=== PATIENT | female | born 1990 | race Caucasian/White ===

== ENCOUNTER 2022-03-11 12:23 | Emergency (ER) | payer BC ==
[2022-03-11 14:00] LABS: Absolute Lymphocytes (CBC) 1.9 K/uL (0.7-4.9); Hematocrit 37.3 % (36.0-45.0); Lymphocytes % 16.4 % (15.3-44.8); MPV 9.8 fL (7.6-11.3); RBC Red Blood Cell Count 4.28 M/uL (3.86-4.86)
[2022-03-11 14:16] LABS: Albumin 2.7 g/dL (3.4-5.0); Bilirubin Total 0.3 mg/dL (0.2-1.0); Potassium 3.6 mmol/L (3.5-5.1); Protein, Total 6.8 g/dL (6.4-8.2)
--- NOTE | 2022-03-11 16:09 | RAD REPORT ---
EXAM DESCRIPTION: MRI - Brain Wo Cont - 03/11/2022 3:55 pm CLINICAL HISTORY: Vision changes - COMPARISON: No comparisons TECHNIQUE: Sagittal T1-weighted images were obtained along with PD/heavily T2-weighted and T2-FLAIR images. Axial DWI and ADC mapping sequences were also obtained along with coronal heavily T2-weighted images were obtained. FINDINGS: No intracranial hemorrhage, mass or acute infarction. There is no edema or shift of midlin e structures. No extra-axial fluid collections. Signal voids are seen as a normal finding in the lexi r intracranial vessels. No significant white matter disease. Mastoid air cells and paranasal sinuses are clear. IMPRESSION: Negative non-contrast MRI of the Brain.
[2022-03-11 16:21] LABS: Urine Blood Negative (Negative); Urine Glucose Negative (Negative); Urine Protein Negative (Negative); Urine Specific Gravity 1.025 (1.005-1.030); Urine pH 5.5 (5.0-7.0)
--- NOTE | 2022-03-11 16:51 | ER ---
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 States since kb3 Monday she has had intermittent blurry vision and partial vision loss episodes that last approximately 45 minutes. States she had similar symptoms in her teens that had resolved. Reports migraine headache often follows these episodes. Coronavirus screen: Vaccine status: Patient reports being unvaccinated. Client denies travel out of the [place] in the last 14 days. Ebola Screen: Patient negative for fever greater than or equal to 101.5 degrees Fahrenheit, and additional compatible Ebola Virus Disease symptoms Patient denies exposure to infectious person. Patient denies travel to an Ebola-affected area in the 21 days before illness onset. No symptoms or risks identified at this time. Initial Sepsis Screen: Does the patient meet any 2 criteria? No. Patient's initial sepsis screen is negative. Does the patient have a suspected source of infection? No. Patient's initial sepsis screen is negative. Risk Assessment: Do you want to hurt yourself or someone else? Patient reports no desire to harm self or others. Onset of symptoms was March 11, 2022 at 11:00. 12:41 Method Of Arrival: Ambulatory kb3 12:41 Acuity: IVAN 3 kb3 Triage Assessment: 12:46 General: Appears in no apparent distress. Behavior is calm, cooperative. Pain: kb3 Complains of pain in head Pain does not radiate. Pain currently is 4 out of 10 on a pain scale. Quality of pain is described as aching, dull, Pain began 2 hours ago. 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 Last tetanus immunization: up to date. - Social history:: Smoking status: Patient denies any tobacco usage or history of. Screenin:05 Abuse screen: Denies threats or abuse. Denies injuries from another. Nutritional db screening: No deficits noted. Tuberculosis screening: No symptoms or risk factors identified. Fall Risk None identified. No fall in past 12 months (0 pts). No secondary diagnosis (0 pts). No IV (0 pts). Ambulatory Aid- None/Bed Rest/Nurse Assist (0 pts). Gait- Normal/Bed Rest/Wheelchair (0 pts) Mental Status- Oriented to own ability (0 pts). Total Laureano Fall Scale indicates No Risk (0-24 pts). Assessment: 13:23 Reassessment: Patient appears in no apparent distress at this time. Patient and/or db family updated on plan of care and expected duration. Pain level reassessed. Patient is alert, oriented x 3, equal unlabored respirations, skin warm/dry/pink. General: Appears in no apparent distress. comfortable, Behavior is cooperative, anxious, quiet. Pain: Complains of pain in face. Neuro: No deficits noted. Cardiovascular: No deficits noted. Respiratory: No deficits noted. GI: No deficits noted. : No deficits noted. EENT: No deficits noted. Derm: No deficits noted. Musculoskeletal: No deficits noted. 13:26 Neuro: Reports reports vision changes since Monday that come and go. States has db flashes of light right now.. 14:30 Reassessment: Patient appears in no apparent distress at this time. No changes from db previously documented assessment. Patient and/or family updated on plan of care and expected duration. Pain level reassessed. Patient is alert, oriented x 3, equal unlabored respirations, skin warm/dry/pink. 15:30 Reassessment: Patient appears in no apparent distress at this time. No changes from db previously documented assessment. Patient and/or family updated on plan of care and expected duration. Pain level reassessed. Patient is alert, oriented x 3, equal unlabored respirations, skin warm/dry/pink. Vital Signs: 12:41 BP 136 / 87; Pulse 100; Resp 20; Temp 98.6; Pulse Ox 100% ; Weight 72.57 kg; Height 5 kb3 ft. 4 in. (162.56 cm); Pain 4/10; 13:05 BP 121 / 76; Pulse 94; Resp 18; Pulse Ox 99% ; Pain 4/10; db 15:00 BP 116 / 70; Pulse 83; Resp 16; Pulse Ox 100% ; db 17:00 BP 111 / 67; Pulse 83; Resp 16; Temp 98.7; Pulse Ox 99% ; Pain 0/10; db 12:41 Body Mass Index 27.46 (72.57 kg, 162.56 cm) kb3 Vitals: 13:05 Cardiac Rhythm Assessment Regular Sinus rhythm. db ED Course: 12:26 Patient arrived in ED. mr 12:45 Triage completed. kb3 12:46 Arm band placed on right wrist. kb3 12:53 Godwin Steward MD is Attending Physician. kdr 13:23 Janel Arita, RN is Primary Nurse. db 13:40 Inserted saline lock: 20 gauge in left antecubital area, using aseptic technique. Blood db collected. 17:12 No provider procedures requiring assistance completed. IV discontinued, intact, db bleeding controlled, No redness/swelling at site. Pressure dressing applied. 17:13 Patient has correct armband on for positive identification. Fall risk band placed. Bed db in low position. Side rails up X 1. Administered Medications: No medications were administered Medication: 13:05 VIS not applicable for this client. db Outcome: 16:50 Discharge ordered by . kdr 17:07 Patient left the ED. db 17:12 Discharged to home ambulatory, with significant other. db 17:12 Condition: stable 17:12 Discharge instructions given to patient, significant other, Instructed on discharge instructions, follow up and referral plans. Signatures: Godwin Steward MD MD [facility] Irene mr MartinezAbida, RN RN kb3 Janel Arita, RN RN db Corrections: (The following items were deleted from the chart) 13:26 13:05 BP 121 / 76; Pulse 94bpm; Resp 18bpm; Pulse Ox 99%; db db
--- NOTE | 2022-03-11 16:51 | EDPHYS ---
[facility] Name: Pauline Clancy Age: 31 yrs Sex: Female : 1990 Arrival Date: 03/11/2022 Time: 12:26 Bed 3 Private MD: ED Physician Godwin Steward HPI: 03/11 17:49 This 31 yrs old Female presents to ER via Ambulatory with complaints of , kdr Vision Problem. 17:49 Patient is approximately 31 weeks at . Patient states that she has a history of kdr macular degeneration but has not had any progression of her disease process in the last 10 years. For the past couple of weeks, she has had intermittent scotomas and visual field deficits. Currently on presentation she has no visual field deficits but she persists with intermittent scotomas. She has no other focal or global complaints.. Onset: The symptoms/episode began/occurred gradually, 2 week(s) ago. Severity of symptoms: At their worst the symptoms were mild just prior to arrival, in the emergency department the symptoms have improved moderately. The patient has not experienced similar symptoms in the past, . The patient has not recently seen a physician. 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 Last tetanus immunization: up to date. - Social history:: Smoking status: Patient denies any tobacco usage or history of. ROS: 17:49 Constitutional: Negative for fever, chills, and weight loss, Eyes: Negative for injury, kdr pain, redness, and discharge, ENT: Negative for injury, pain, and discharge, Neck: Negative for injury, pain, and swelling, Cardiovascular: Negative for chest pain, palpitations, and edema, Respiratory: Negative for shortness of breath, cough, wheezing, and pleuritic chest pain, Abdomen/GI: Negative for abdominal pain, nausea, vomiting, diarrhea, and constipation, Back: Negative for injury and pain, : Negative for injury, bleeding, discharge, and swelling, MS/Extremity: Negative for injury and deformity, Skin: Negative for injury, rash, and discoloration, Neuro: Negative for headache, weakness, numbness, tingling, and seizure activity. She has had visual field changes Psych: Negative for depression, anxiety, suicide ideation, homicidal ideation, and hallucinations, Allergy/Immunology: Negative for hives, rash, and allergies, Endocrine: Negative for neck swelling, polydipsia, polyuria, polyphagia, and marked weight changes, Hematologic/Lymphatic: Negative for swollen nodes, abnormal bleeding, and unusual bruising. Exam: 17:49 Constitutional: This is a well developed, well nourished patient who is awake, alert, kdr and in no acute distress. Head/Face: Normocephalic, atraumatic. Eyes: Pupils equal round and reactive to light, extra-ocular motions intact. Lids and lashes normal. Conjunctiva and sclera are non-icteric and not injected. Cornea within normal limits. Periorbital areas with no swelling, redness, or edema. Neck: Trachea midline, no thyromegaly or masses palpated, and no cervical lymphadenopathy. Supple, full range of motion without nuchal rigidity, or vertebral point tenderness. No Meningismus. Chest/axilla: Normal chest wall appearance and motion. Nontender with no deformity. No lesions are appreciated. Cardiovascular: Regular rate and rhythm with a normal S1 and S2. No gallops, murmurs, or rubs. Normal PMI, no JVD. No pulse deficits. Respiratory: Lungs have equal breath sounds bilaterally, clear to auscultation and percussion. No rales, rhonchi or wheezes noted. No increased work of breathing, no retractions or nasal flaring. Abdomen/GI: Soft, non-tender, with normal bowel sounds. No distension or tympany. No guarding or rebound. No evidence of tenderness throughout. Back: No spinal tenderness. No costovertebral tenderness. Full range of motion. Skin: Warm, dry with normal turgor. Normal color with no rashes, no lesions, and no evidence of cellulitis. MS/ Extremity: Pulses equal, no cyanosis. Neurovascular intact. Full, normal range of motion. Neuro: Awake and alert, GCS 15, oriented to person, place, time, and situation. Cranial nerves II-XII grossly intact. Motor strength 5/5 in all extremities. Sensory grossly intact. Cerebellar exam normal. Normal gait. Psych: Awake, alert, with orientation to person, place and time. Behavior, mood, and affect are within normal limits. Vital Signs: 12:41 BP 136 / 87; Pulse 100; Resp 20; Temp 98.6; Pulse Ox 100% ; Weight 72.57 kg; Height 5 kb3 ft. 4 in. (162.56 cm); Pain 4/10; 13:05 BP 121 / 76; Pulse 94; Resp 18; Pulse Ox 99% ; Pain 4/10; db 15:00 BP 116 / 70; Pulse 83; Resp 16; Pulse Ox 100% ; db 17:00 BP 111 / 67; Pulse 83; Resp 16; Temp 98.7; Pulse Ox 99% ; Pain 0/10; db 12:41 Body Mass Index 27.46 (72.57 kg, 162.56 cm) kb3 MDM: 16:50 Patient medically screened. kdr 17:49 Data reviewed: vital signs, nurses notes, lab test result(s), radiologic studies. kdr Counseling: I had a detailed discussion with the patient and/or guardian regarding: the historical points, exam findings, and any diagnostic results supporting the discharge/admit diagnosis, lab results, radiology results, the need for outpatient follow up. 03/11 12:55 Order name: CBC with Diff kdr 03/11 12:55 Order name: Comprehensive Metabolic Panel [facility] 03/11 14:07 Order name: MRI - Brain Wo Cont kdr 03/11 14:08 Order name: CBC with Automated Diff; Complete Time: 16:46 EDDC 03/11 14:16 Order name: Comprehensive Metabolic Panel; Complete Time: 16:46 EDDC 03/11 16:21 Order name: Urine Dipstick-Ancillary; Complete Time: 16:46 EDMS 03/11 12:55 Order name: Urine Dipstick-Ancillary (obtain specimen); Complete Time: 16:21 kdr 03/11 16:09 Order name: MRI; Complete Time: 16:46 EDMS Administered Medications: No medications were administered Disposition Summary: 03/11/22 16:50 Discharge Ordered Location: Home kdr Problem: an ongoing problem kdr Symptoms: are unchanged kdr Condition: Stable kdr Diagnosis - Scotoma involving central area, bilateral kdr Followup: kdr - With: Private Physician - When: 2 - 3 days - Reason: If symptoms return, Further diagnostic work-up, Recheck today's complaints, Continuance of care, Re-evaluation by your physician Discharge Instructions: - Discharge Summary Sheet kdr - Scotoma, [id number] kdr Forms: - Medication Reconciliation Form kdr - Thank You Letter kdr Signatures: Dispatcher [employer] Godwin Smith MD MD kdr Abida Martinez, RN RN kb3
[2022-03-12 05:57] VITALS: TEMP 98.6
[2022-03-12 06:13] VITALS: BP 116/70; O2SAT 100
== END 2022-03-11 17:07 | disposition home or self-care (01) ==
LOC: ER 12:23
DX: O99.353 Diseases of the nervous system complicating pregnancy, third trimester (principal); H53.413 Scotoma involving central area, bilateral; Z3A.31 31 weeks gestation of pregnancy
CPT/HCPCS: 36415; 70551; 80053; 81003; 85025; 99283